=== PATIENT | male | born 1940 | race African-American/Black ===

== ENCOUNTER 2017-03-10 20:07 | Emergency (ER) | payer MEDICARE ==
[~2017-03-10] VITALS: Ht 172.7 cm; Wt 90.3 kg
[~2017-03-10 20:07] MED LIST: AMLO10TA2 PO; ASPI325T4 PO; ATOR40TA59 PO; GABA-586 PO; GLIM2TAB2 PO; HYDR-2868; HYDR25TA9 PO; INSU100V13 SQ; IRON45TA3 PO; LISI40TA PO; MULT-659 PO
--- NOTE | 2017-03-10 20:15 | PHYS DOC ---
General Chief Complaint: WEAKNESS/GENERALIZED Stated Complaint: LETHARGIC,WEAKNESS Time Seen by MD: 20:12 Source: patient, family Problems: History of Present Illness Initial Comments Patient here for generalized weakness. Patient says it started somewhat yesterday, but is significantly worse today and increasing over the course today. He says that he was able to get around the house with a cane, which he does chronically, but this evening really has not been able to be up and about at all. He says his legs feel heavy but really has no other focal complaints of weakness. He's had no headache with this. There's no vision or speech changes. There is no fever chills URI symptoms or cough. There is no runny nose or sore throat. There is no chest pain or shortness of breath. He has no nausea vomiting or abdominal pain. There is no change in bowel or bladder habits and no incontinence. As noted, he says he feels generally weak and his legs are heavy, but denies any other focal acute extremity or neurologic complaints. Patient says he's had these symptoms before for which she was admitted to the hospital last year, but doesn't remember what they said was wrong. Patient is done nothing for this home and notes no factors that increase or decrease any symptoms might have. He says he just has no energy to get up and around. Patient 's past medical history is remarkable for high blood pressure and chronic kidney disease. He does have medication list that also suggest he has a history of high cholesterol and diabetes. He is a nonsmoker and nonuser of ethanol. Allergies: Coded Allergies: No Known Drug Allergies (Unverified , 05/11/16) Past Medical History Medical History: diabetes, high cholesterol, hypertension, renal disease Surgical History: noncontributory Social History Smoker: non-smoker Alcohol: none Review of Systems All Other Systems: Reviewed and Negative Physical Exam General Appearance: WD/WN, no apparent distress Eyes: bilateral eye EOMI, bilateral eye PERRL, bilateral eye normal inspection Ear, Nose, Throat: normal ENT inspection, normal pharynx Neck: full range of motion, supple, normal inspection Respiratory: lungs clear, normal breath sounds, no respiratory distress Cardiovascular: regular rate, rhythm, no edema Gastrointestinal: non tender, soft, no organomegaly Back: no CVA tenderness Extremities: non-tender, normal inspection, no pedal edema Neurologic/Psychiatric: evp business development II-XII nml as tested, no motor/sensory deficits, alert, normal mood/affect, oriented x 3 Skin: normal color Lymphatic: no adenopathy Comments Generally this a well-developed well-nourished black male in no acute distress. Vitals are as noted. Pertinent findings on physical exam shows pupils to be equal and reactive. Extraocular movements are intact. Ears and throat clear. Head is atraumatic normocephalic. Neck supple without adenopathy or JVD. No meningeal signs. Chest is clear and cardiovascular exam shows regular rate and rhythm without murmur. The abdomen is soft and nontender without masses or organomegaly. There is no perineal findings. Back shows no CVA tenderness. Extremity show no rashes, cyanosis, or edema. Neurologic exam finds patient awake alert oriented 4. Cranial nerves II through XII grossly intact. DTRs 1+ or 4+ equal bilaterally. Strength 5 over 5 equal all sites tested. Patient does occasionally have some intermittent groin discomfort on moving the left lower extremity. He is able to get up and stand without difficulty and Romberg is negative. He swings the arms and legs without difficulty, and freely, with good range of motion and strength when changing positions in the exam room. Remainder of physical exam is clincially unremarkable. Orders, Labs, Meds Old charts note past ER visits for weakness and constipation. Patient was most recently admitted in the hospital in April of last year for bradycardia with nursing episode. Apparently was evaluated by photonics engineer and was found some of his medications were inhibiting his AV node. His medications were adjusted. Comorbidities that time including diabetes, iron deficiency anemia, and stage III chronic kidney disease. EKG shows sinus at 65. Normal axis. No acute ST or T-wave changes. There is an artifact at the tail ends of leads II and III which mimics focal elevation, but which is really an elevation of the baseline in those leads over adjoining leads. Labs today are essentially clinically unremarkable. Flu swabs are negative. CBC is stable. Urine is 45 with a creatinine of 2.6. Creatinine is actually improved from his past creatinine value of 2.9. This is consistent with the patient's known history of renal disease. CT scan of the head shows no acute changes per radiology. 2315 Patient resting comfortably ER. I did apologize for delays in care related to patient volume. Patient and his are very gracious in understanding. He says he is feeling better, and at this time he is able to get up, ambulate freely in the ER with really just minimal difficulty, able to go the bathroom by himself amulet back to the room without problem. I discussed with him the uncertain cause of his generalized weakness. Many ways, this does seem very similar to his previous ER admission for generalized weakness, after which she was sent home without cause being determined. During his hospital admission appeared that he was bradycardic, he certainly has no bradycardia at this time. Discussed with the patient the uncertain cause of symptoms. We discussed that while all the labs and CT scan looked good at this time, if he felt generally weak and unsteady and felt like he would not do well at home, we could certainly consider admitting him to the hospital. Alternately, she felt that he was going to do okay at home, given we had no focal neurologic findings and a negative workup we can probably discharge home to follow-up with his own physician, Dr. Brown, tomorrow. After discussion, the patient does state he feels well enough [place] to try this at home. We discussed again the uncertain etiology the symptoms. I really don't think this is an acute neurologic event like a CVA or TIA. There is really no focal symptoms to suggest this. He actually is already on an aspirin a day for heart health, this is good TIA prophylaxis. As noted, he feels like he'll do well at home, declines the offer of admission. I think this is a reasonable decision on his part given his prior negative workups and the fact that he is up and about and on his feet really with minimal difficulty at this time. He does voice understanding of the need to follow up with primary care tomorrow or return to the ER sooner as needed if worsening anyway. He looks well, in no acute distress discomfort distress, neurologically stable, and okay for discharge home with his . WOODROW ARITA MD Mar 10, 2017 20:15
[2017-03-10] MEDS ORDERED: IV NORMAL SALINE 1,000ML 1,000 ML IV ONE (20:45)
[2017-03-10 21:02] LABS: BASO # 0.1 x10^3/uL (0.0-0.2); BASO % 1 % (0-3); EOS # 0.2 x10^3/uL (0.0-0.7); EOS % 3 % (0-3); HEMATOCRIT 34.4 % (39.0-53.0); HEMOGLOBIN 10.9 g/dL (13.0-17.5); LYMPH # 1.4 x10^3/uL (1.0-4.8); LYMPH % 24 % (24-48); MEAN CORPUSCULAR HEMOGLOBIN 24 pg (25-35); MEAN CORPUSCULAR HGB CONC 32 g/dL (31-37); MEAN CORPUSCULAR VOLUME 77 fL (79-100); MONO # 0.6 x10^3/uL (0.0-1.1); MONO % 10 % (0-9); NEUT # 3.6 x10^3uL (1.8-7.7); NEUT % 62 % (31-73); PLATELET COUNT 186 x10^3/uL (140-400); RED BLOOD COUNT 4.48 x10^6/uL (4.30-5.70); RED CELL DISTRIBUTION WIDTH 13.9 % (11.5-14.5); WHITE BLOOD COUNT 5.7 x10^3/uL (4.0-11.0)
--- NOTE | 2017-03-10 21:07 | RAD ---
PROCEDURE CT head without contrast. HISTORY Weakness, onset yesterday. TECHNIQUE Helical CT imaging of the brain is performed without IV contrast. PQRS: One or more the following individualized dose reduction techniques were utilized for the study: 1. Automated exposure control. 2. Adjustment of the mA and/or kV according to patient size. 3. Use of iterative reconstruction technique. COMPARISON CT head without contrast August 07, 2016. FINDINGS There is no midline shift or mass effect. No extra-axial fluid collection or intraparenchymal hemorrhage. Pastor-white matter differentiation is preserved. The ventricles and sulci are prominent, consistent with age-related cerebral atrophy. There is mild periventricular white matter hypoattenuation, nonspecific but commonly due to chronic small vessel ischemic disease in a patient of this age. The visualized paranasal sinuses and mastoid air cells are clear. The globes and orbits appear intact. No acute calvarial abnormality. IMPRESSION No acute intracranial abnormality. Electronically signed by: Tian Cool MD (Mar 10, 2017 21:05:55)
--- NOTE | 2017-03-10 21:08 | EKG ---
[address] [address] Test Date: 2017-03-10 Test Time: 20:52:38 Pat Name: SEAMUS ALTMAN Department: Room: Gender: M Sales Representative Publications: : 1940 Requested By: WOODROW ARITA Order Number: [id number] Reading MD: Measurements Intervals [place] Rate: 65 P: 49 TX: 172 QRS: 21 QRSD: 82 T: 34 QT: 414 QTc: 431 Interpretive Statements SINUS RHYTHM INTERPOLATED ATRIAL PREMATURE COMPLEX(ES) NO SPECIFIC ECG ABNORMALITIES RI6.01 Unconfirmed report Compared to ECG 08/07/2016 00:53:18 No significant changes
[2017-03-10 21:27] LABS: ALBUMIN 4.1 g/dL (3.4-5.0); ALBUMIN/GLOBULIN RATIO 1.1 (1.0-1.7); CALCIUM 9.3 mg/dL (8.5-10.1); CREATININE 2.6 mg/dL (0.7-1.3); GFR 29.3; POTASSIUM 4.2 mmol/L (3.5-5.1); TOTAL BILIRUBIN 0.4 mg/dL (0.2-1.0); TOTAL PROTEIN 7.9 g/dL (6.4-8.2)
[2017-03-10 21:40] LABS: INFLUENZA A PATIENT NEGATIVE (NEGATIVE); INFLUENZA B PATIENT NEGATIVE (NEGATIVE)
[2017-03-10 22:06] LABS: CLARITY,URINE CLEAR; COLOR,URINE YELLOW; GLUCOSE,URINE NEG (NEG)
[2017-03-10 22:07] LABS: BILIRUBIN,URINE NEG (NEG); NITRITE,URINE NEG (NEG); UROBILINOGEN,URINE 0.2 mg/dL (0.2 mg/dL)
[2017-03-10 22:08] LABS: BACTERIA,URINE 0 /HPF (0-FEW); RBC,URINE 0 /HPF (0-2); SQUAMOUS EPITHELIAL CELL,UR FEW /LPF; WBC,URINE OCC /HPF (0-4)
[2017-03-10 23:00] VITALS: BP 149/71
== END 2017-03-10 23:50 | disposition home or self-care (01) ==
LOC: ER 20:07
DX: R53.1 Weakness (principal); E11.9 Type 2 diabetes mellitus without complications; E78.00 Pure hypercholesterolemia, unspecified; I12.9 Hypertensive chronic kidney disease with stage 1 through stage 4 chronic kidney disease, or unspecified chronic kidney disease; N18.9 Chronic kidney disease, unspecified
CPT/HCPCS: 36415; 70450; 80053; 81001; 82010; 82150; 82553; 82947; 83605; 83690; 84443; 85027; 87804; 93005; 96360; 99285-25; J7030

== ENCOUNTER → 2017-06-08 | Outpatient (CLI) | payer MEDICARE ==
[~2017-06-08] MED LIST changes: -ASPI325T4 PO; +ASPI325T8 PO
[2017-06-08 09:30] LABS: BASO % 1 % (0-3); EOS # 0.2 x10^3/uL (0.0-0.7); EOS % 3 % (0-3); HEMATOCRIT 32.7 % (39.0-53.0); HEMOGLOBIN 10.6 g/dL (13.0-17.5); LYMPH # 1.7 x10^3/uL (1.0-4.8); LYMPH % 31 % (24-48); MEAN CORPUSCULAR HEMOGLOBIN 25 pg (25-35); MEAN CORPUSCULAR HGB CONC 33 g/dL (31-37); MEAN CORPUSCULAR VOLUME 76 fL (79-100); MONO # 0.6 x10^3/uL (0.0-1.1); MONO % 11 % (0-9); NEUT # 2.9 x10^3uL (1.8-7.7); NEUT % 54 % (31-73); PLATELET COUNT 185 x10^3/uL (140-400); RED BLOOD COUNT 4.29 x10^6/uL (4.30-5.70); WHITE BLOOD COUNT 5.3 x10^3/uL (4.0-11.0)
[2017-06-08 09:48] LABS: ALBUMIN 3.8 g/dL (3.4-5.0); CALCIUM 8.8 mg/dL (8.5-10.1); CREATININE 2.6 mg/dL (0.7-1.3); GFR 29.3; PHOSPHORUS 3.3 mg/dL (2.6-4.7); POTASSIUM 4.4 mmol/L (3.5-5.1)
[2017-06-08 23:10] LABS: MICROALB RD UR 263.4 ug/mL (Not Estab.); TOTAL PROTEIN CREATININE RATIO 638 mg/g creat (0-200); UR PROTEIN RD 37.5 mg/dL (Not Estab.)
[2017-06-09 00:07] LABS: CALCIUM PTH 9.2 mg/dL (8.6-10.2); CREATININE PTH 2.46 mg/dL (0.76-1.27); PTH INTACT 112 pg/mL (15-65)
== END | disposition home or self-care (01) ==
LOC: LAB 08:57
PROVIDERS: ATTEND Internal Medicine Nephrology
DX: I12.9 Hypertensive chronic kidney disease with stage 1 through stage 4 chronic kidney disease, or unspecified chronic kidney disease (principal); N18.4 Chronic kidney disease, stage 4 (severe); E11.21 Type 2 diabetes mellitus with diabetic nephropathy; R80.9 Proteinuria, unspecified; Z68.29 Body mass index [BMI] 29.0-29.9, adult
CPT/HCPCS: 36415; 80069; 82043; 82570; 83735; 83970; 84156; 85027

== ENCOUNTER → 2017-07-02 | Outpatient (CLI) | payer MEDICARE ==
--- NOTE | 2017-07-02 13:34 | RAD ---
Ventilation/perfusion lung scan, 07/02/2017: History: Acute bronchitis, chest heaviness, dyspnea The ventilation study was performed utilizing 16.6 mCi of xenon-133. There is symmetric activity in the lungs. There is good washout of activity from both lungs. Perfusion imaging was performed utilizing 5.5 mCi of technetium 99m MAA. A similar pattern of activity is present in the lungs. No unmatched or segmental perfusion defects are seen. IMPRESSION: No VQ findings to suggest pulmonary emboli.
== END | disposition home or self-care (01) ==
LOC: NM 11:16
PROVIDERS: ATTEND Family Medicine
DX: J20.1 Acute bronchitis due to Hemophilus influenzae (principal)
CPT/HCPCS: 78582; 96374; A9540; A9558

== ENCOUNTER → 2017-08-31 | Outpatient (CLI) | payer MEDICARE ==
[2017-08-31 16:58] LABS: ALBUMIN 3.9 g/dL (3.4-5.0); CALCIUM 8.9 mg/dL (8.5-10.1); CREATININE 2.8 mg/dL (0.7-1.3); GFR 26.9; PHOSPHORUS 3.6 mg/dL (2.6-4.7)
[2017-08-31 18:03] LABS: HEMOGLOBIN 10.3 g/dL (13.0-17.5)
[2017-09-01 11:05] LABS: MICRO CREAT RATIO 238.3 mg/g creat (0.0-30.0); MICROALB RD UR 185.4 ug/mL (Not Estab.); PROTEIN RANDOM URINE 28.2 mg/dL (Not Estab.)
[2017-09-01 20:09] LABS: CALCIUM PTH 9.4 mg/dL (8.6-10.2); CREATININE PTH 2.53 mg/dL (0.76-1.27); PTH INTACT 99 pg/mL (15-65)
[2017-09-01 23:13] LABS: HEMOGLOBIN A1C 6.2 % (4.8-5.6)
== END | disposition home or self-care (01) ==
LOC: LAB 14:31
PROVIDERS: ATTEND Internal Medicine Nephrology
DX: I12.9 Hypertensive chronic kidney disease with stage 1 through stage 4 chronic kidney disease, or unspecified chronic kidney disease (principal); N18.4 Chronic kidney disease, stage 4 (severe); E11.21 Type 2 diabetes mellitus with diabetic nephropathy; I70.1 Atherosclerosis of renal artery; R80.1 Persistent proteinuria, unspecified; D64.9 Anemia, unspecified; Z68.29 Body mass index [BMI] 29.0-29.9, adult
CPT/HCPCS: 36415; 80069; 82043; 82306; 82570; 82607; 82728; 83036; 83540; 83550; 83735; 83970; 84156; 85014; 85018

== ENCOUNTER 2017-09-23 22:24 | Inpatient (IN) | payer MEDICARE ==
[~2017-09-23] VITALS: Ht 172.7 cm; Wt 85.4 kg
[~2017-09-23 22:24] MED LIST changes: -HYDR-2868; +HYDR-2868 PO
[2017-09-23] MEDS ORDERED: LABETALOL 20 MG/4 ML DISP.SYRIN. IV PRN (22:45)
[2017-09-23] MEDS ORDERED: 0.9 % SODIUM CHLORIDE 10 ML DISP.SYRIN. IV PRN (22:45)
--- NOTE | 2017-09-23 22:56 | EKG ---
[address] [address] Test Date: 2017-09-23 Test Time: 22:44:54 Pat Name: SEAMUS ALTMAN Department: Room: Gender: M Bureau Director: : 1940 Requested By: IRIS LOGAN Order Number: [id number] Reading MD: Cedric Holcomb Measurements Intervals [place] Rate: 57 P: 41 DE: 168 QRS: 16 QRSD: 92 T: 49 QT: 434 QTc: 425 Interpretive Statements SINUS RHYTHM ATRIAL PREMATURE COMPLEX(ES) Electronically Signed On 09-29-2017 8:18:31 CDT by Cedric Holcomb
[2017-09-23] MEDS ORDERED: IV NORMAL SALINE 1,000ML 1,000 ML IV SCH (23:00)
[2017-09-23] MEDS ORDERED: ASPIRIN 81 MG TAB.CHEW PO ONE (23:00)
--- NOTE | 2017-09-23 23:01 | PHYS DOC ---
Past History Past Medical History: Constipation, Diabetes, Hypertension, Renal Disease, Other Past Surgical History: Tonsillectomy, Other Smoking: Non-smoker Alcohol Use: None Drug Use: None Adult General Chief Complaint Chief Complaint: HYPERTENSION HPI HPI Patient is a pleasant 76-year-old -[place] male with history of hypertension, hyponatremia, diabetes, peripheral neuropathy who presents with sudden onset of dizziness while sitting in a chair. Patient was watching a football game tonight we had an sudden onset of dizziness with intense nausea without headache but had fullness in his ears. He denies any headache, chest pain, abdominal pain, diarrhea, fevers, chills, URI symptoms, hearing loss or tinnitus. Patient says he's had something like this in the past but this is more intense. Patient admits that he may have some problems with his medications as he believes his gabapentin and hydralazine may be concerning to his symptoms. He denies any trauma, travel outside the country or recent antibiotics. This is not changed with position or head movement. Patient almost passed out. My syncope differential includes but not limited to: Neurally mediated vasovagal syncope, situational syncope, cardiac sinus syncope , orthostatic hypertension, medications, psychiatric interventions, neurologic syncope, cardiogenic syncopal B, to include organic heart disease congestive heart failure, cardiac dysrhythmia, seizure disorder, stroke or transient ischemic attack, bradycardia dysrhythmias, tachycardia dysrhythmias, PT, V. fib V. fib, cardiac abnormalities like first degree secondary third-degree AV blocks , prolonged QT, hypertrophic Elijah myopathy, severe pulmonic stenosis, pulmonary arterial hypertension, atrial myxomas, aortic stenosis, valvular failure, alcohol consumption, adrenal insufficiency, drug effects from things like antidepressants, antihypertensive agents like beta blockers, vasodilators including calcium channel blockers and nitrates, autonomic insufficiency. Review of Systems Review of Systems Constitutional: Denies fever or chills [] Eyes: Denies change in visual acuity, redness, or eye pain [] HENT: Denies nasal congestion or sore throat [] Respiratory: Denies cough or shortness of breath [] Cardiovascular: No additional information not addressed in HPI [] GI: Denies abdominal pain, vomiting, bloody stools or diarrhea he has complained of nausea[] : Denies dysuria or hematuria [] Musculoskeletal: Denies back pain or joint pain [] Integument: Denies rash or skin lesions [] Neurologic: Denies headache, focal weakness or sensory changes [] Endocrine: Denies polyuria or polydipsia [] Current Medications Current Medications Current Medications Medications (Trade) Dose Ordered Sig/Elda Start Time Stop Time Status Last Admin Dose Admin Aspirin (Children'S Aspirin) 324 mg 1X ONCE 09/23/17 22:45 09/23/17 22:46 UNV Labetalol HCl (Normodyne) 10 mg PRN Q10MIN PRN 09/23/17 22:45 UNV Sodium Chloride (Normal Saline Flush) 10 ml QSHIFT PRN 09/23/17 22:45 UNV Allergies Allergies Allergies Coded Allergies Type Severity Reaction Last Updated Verified No Known Drug Allergies 05/11/16 No Physical Exam Physical Exam Vital signs recorded on the chart patient noted to be very hypertensive. Constitutional: Well developed, well nourished, no acute distress, non-toxic appearance. [] HENT: Normocephalic, atraumatic, bilateral external ears normal, oropharynx moist, no oral exudates, nose normal. [] Eyes: PERRLA, EOMI, conjunctiva normal, no discharge patient does have a right going nystagmus. [] Neck: Normal range of motion, no tenderness, supple, no stridor. [] Cardiovascular:Heart rate regular rhythm, no murmur [] Lungs & Thorax: Bilateral breath sounds clear to auscultation [] Abdomen: Bowel sounds normal, soft, no tenderness, no masses, no pulsatile masses. [] Skin: Warm, dry, no erythema, no rash. [] Back: No tenderness, no CVA tenderness. [] Extremities: No tenderness, no cyanosis, no clubbing, ROM intact, no edema. [] Neurologic: Alert and oriented X 3, normal motor function, normal sensory function, no focal deficits noted. [] Psychologic: Affect normal, judgement normal, mood normal. [] Based on his presentation and the stroke score below patient has a 0 at this time 1a. Level of consciousness: 0 = Alert; keenly responsive. 1 = Not alert; but arousable by minor stimulation to obey, answer, or respond. 2 = Not alert; requires repeated stimulation to attend, or is obtunded and requires strong or painful stimulation to make movements (not stereotyped). 3 = Responds only with reflex motor or autonomic effects or totally unresponsive , flaccid, and areflexic. 1b. LOC questions: 0 = Answers both questions correctly. 1 = Answers one question correctly. 2 = Answers neither question correctly. 1c. LOC commands: 0 = Performs both tasks correctly. 1 = Performs one task correctly. 2 = Performs neither task correctly. 2. Best gaze: 0 = Normal. 1 = Partial gaze palsy; gaze is abnormal in one or both eyes, but forced deviation or total gaze paresis is not present. 2 = Forced deviation, or total gaze paresis not overcome by the oculocephalic maneuver. 3. Visual: 0 = No visual loss. 1 = Partial hemianopia. 2 = Complete hemianopia. 3 = Bilateral hemianopia (blind including cortical blindness). 4. Facial palsy: 0 = Normal symmetrical movements. 1 = Minor paralysis (flattened nasolabial fold, asymmetry on smiling). 2 = Partial paralysis (total or near-total paralysis of lower face). 3 = Complete paralysis of one or both sides (absence of facial movement in the upper and lower face). 5. Motor arm: 0 = No drift; limb holds 90 (or 45) degrees for full 10 seconds. 1 = Drift; limb holds 90 (or 45) degrees, but drifts down before full 10 seconds ; does not hit bed or other support. 2 = Some effort against gravity; limb cannot get to or maintain (if cued) 90 ( or 45) degrees, drifts down to bed, but has some effort against gravity. 3 = No effort against gravity; limb falls. 4 = No movement. UN = Amputation or joint fusion, explain: 5a. Left arm 5b. Right arm 6. Motor le = No drift; leg holds 30-degree position for full 5 seconds. 1 = Drift; leg falls by the end of the 5-second period but does not hit bed. 2 = Some effort against gravity; leg falls to bed by 5 seconds, but has some effort against gravity. 3 = No effort against gravity; leg falls to bed immediately. 4 = No movement. UN = Amputation or joint fusion, explain: 6a. Left leg 6b. Right leg 7. Limb ataxia: 0 = Absent. 1 = Present in one limb. 2 = Present in two limbs. UN = Amputation or joint fusion 8. Sensory: 0 = Normal; no sensory loss. 1 = Njuy-dj-ujfcltvt sensory loss; patient feels pinprick is less sharp or is dull on the affected side; or there is a loss of superficial pain with pinprick , but patient is aware of being touched. 2 = Severe to total sensory loss; patient is not aware of being touched in the face, arm, and leg. 9. Best language: 0 = No aphasia; normal. 1 = Gtcr-ev-kfthmjiz aphasia; some obvious loss of fluency or facility of comprehension, without significant limitation on ideas expressed or form of expression. Reduction of speech and/or comprehension, however, makes conversation about provided materials difficult or impossible. For example, in conversation about provided materials, examiner can identify picture or naming card content from patient's response. 2 = Severe aphasia; all communication is through fragmentary expression; great need for inference, questioning, and guessing by the listener. Range of information that can be exchanged is limited; listener carries burden of communication. Examiner cannot identify materials provided from patient response. 3 = Mute, global aphasia; no usable speech or auditory comprehension. 10. Dysarthria: 0 = Normal. 1 = Rpwp-ac-purnmvog dysarthria; patient slurs at least some words and, at worst , can be understood with some difficulty. 2 = Severe dysarthria; patient's speech is so slurred as to be unintelligible in the absence of or out of proportion to any dysphasia, or is mute/anarthric. UN = Intubated or other physical barrier, explain: 11. Extinction and inattention (formerly neglect): 0 = No abnormality. 1 = Visual, tactile, auditory, spatial, or personal inattention or extinction to bilateral simultaneous stimulation in one of the sensory modalities. 2 = Profound favio-inattention or extinction to more than one modality; does not recognize own hand or orients to only one side of space. EKG EKG []EKG timed 10:44 PM 09/23/2017 demonstrates sinus rhythm with NC interval 168 which is normal QRS width of 92 which is normal, QTC of 425 which is normal patient has a number of premature atrial contractions without obvious ST segment or T-wave changes consistent with acute cardiac ischemia. This is an abnormal EKG but no STEMI. Radiology/Procedures Radiology/Procedures [] [place] [id number] IMAGING REPORT Signed PATIENT: SEAMUS ALTMAN ACCOUNT: [id number] : 1940 LOCATION: ER AGE: 76 SEX: M EXAM STATUS: REG ER ORD. PHYSICIAN: IRIS LOGAN MD REASON: dizziness PROCEDURE: CT HEAD WO CONTRAST CT scan of the head without contrast 09/23/2017 Clinical History: Dizziness with equilibrium problems. Technique: Unenhanced, contiguous, 5 mm axial sections were obtained through the head. One or more of the following individualized dose reduction techniques were utilized for this study: 1. Automated exposure control. 2. Adjustment of the mA and/or kV according to patient size. 3. Use of iterative reconstruction technique. Findings: Comparison study is dated 03/10/2017. There is generalized parenchymal atrophy. Areas of decreased attenuation are seen within the periventricular and subcortical white matter of both cerebral hemispheres consistent with areas of small vessel ischemic disease. No acute parenchymal abnormality is seen. No extra-axial fluid collection is noted. No skull fracture is seen. Impression: No acute intracranial abnormality is seen. Electronically signed by: Nicholas Parker MD (09/23/2017 11:25 PM) [facility] DICTATED AND SIGNED BY: NICHOLAS PARKER MD DATE: 09/23/17 [id number] CC: IRIS LOGAN MD; CHRISTINE EL MD ~ Course & Med Decision Making Course & Med Decision Making Pertinent Labs and Imaging studies reviewed. (See chart for details) Patient presents with dizziness and near-syncope at home while at rest.My syncope differential includes but not limited to: Neurally mediated vasovagal syncope, situational syncope, cardiac sinus syncope , orthostatic hypertension, medications, psychiatric interventions, neurologic syncope, cardiogenic syncopal B, to include organic heart disease congestive heart failure, cardiac dysrhythmia, seizure disorder, stroke or transient ischemic attack, bradycardia dysrhythmias, tachycardia dysrhythmias, PT, V. fib V. fib, cardiac abnormalities like first degree secondary third-degree AV blocks , prolonged QT, hypertrophic Elijah myopathy, severe pulmonic stenosis, pulmonary arterial hypertension, atrial myxomas, aortic stenosis, valvular failure, alcohol consumption, adrenal insufficiency, drug effects from things like antidepressants, antihypertensive agents like beta blockers, vasodilators including calcium channel blockers and nitrates, autonomic insufficiency. Was considered when he first arrived given his history of diabetes, hypertension hyperlipidemia I considered stroke as well his stroke scale was 0 on arrival. History: Highly suspicious 2 points moderately suspicious 1. slightly suspicious 0 point EKG: ST segment depression 2. nonspecific repolarization disturbance 1. normal 0 point Age: Greater than 65 2 points, 65-45 1., less than 45 years old 0 points Risk factors:> 3 risk factors 2 points, 1-2 risk factors one point, no risk factors 0 point Troponin: > 2 times normal 2 points, 1-2 times normal 1., normal limits 0 point Total score: Score % pts MACE/n MACE Policy 0-3 32% 1.9% 0.05% Discharge 4-6 51% 413/3136 13% 1.3% Observation Risk management 7-10 17% 518/1045 50% 2.8% Observation Treatment, CAG []A stat history patient is actually moderate risk for possible acute coronary event. Given his risk factors, and age patient's troponin and EKG are unremarkable but given the acuteness of his symptoms there is not enough time elapsed between the 2 events to truly rule out cardiac damage at this time. After speaking with the patient at approximately 11:15 PM patient is feeling markedly improved he agreed to admission secondary to this unprovoked nature of the dizziness. From my perspective is likely benign positional vertigo but given his history of diabetes poorly controlled hypertension and hyperlipidemia we do only a more thorough cardiac workup. I will have cardiology evaluate him in the morning. Production Clerk note: Dr. Brown Production Clerk called at of the service service paged at 11:15 PM Consult called back at 11:16 PM Discussed the case I presented and they agreed with admission. Time of acceptance 11:16 p.m. Naun Disclaimer Naun Disclaimer This chart was dictated in whole or in part using Voice Recognition software in a busy, high-work load, and often noisy Emergency Department environment. It may contain unintended and wholly unrecognized errors or omissions. Departure Departure: Impression: Primary Impression: Abnormal EKG Additional Impressions: Near syncope Hypertension Dizziness Disposition: ADMITTED INPATIENT Admitting Physician: Christine El Referrals: CHRISTINE EL MD (PCP) Problem Qualifiers IRIS LOGAN MD Sep 23, 2017 23:01
[2017-09-23 23:17] LABS: HEMOGLOBIN ISTAT 9.5 gm/dL; POTASSIUM ISTAT 4.4 mmol/L (3.5-5.0)
[2017-09-23 23:23] LABS: BASO # 0.1 x10^3/uL (0.0-0.2); BASO % 1 % (0-3); EOS # 0.2 x10^3/uL (0.0-0.7); EOS % 4 % (0-3); HEMATOCRIT 31.6 % (39.0-53.0); HEMOGLOBIN 10.5 g/dL (13.0-17.5); LYMPH # 2.3 x10^3/uL (1.0-4.8); LYMPH % 40 % (24-48); MEAN CORPUSCULAR HEMOGLOBIN 26 pg (25-35); MEAN CORPUSCULAR HGB CONC 33 g/dL (31-37); MEAN CORPUSCULAR VOLUME 77 fL (79-100); MONO # 0.7 x10^3/uL (0.0-1.1); MONO % 12 % (0-9); NEUT # 2.6 x10^3uL (1.8-7.7); NEUT % 44 % (31-73); PLATELET COUNT 187 x10^3/uL (140-400); RED BLOOD COUNT 4.14 x10^6/uL (4.30-5.70); RED CELL DISTRIBUTION WIDTH 13.5 % (11.5-14.5); WHITE BLOOD COUNT 5.9 x10^3/uL (4.0-11.0)
[2017-09-23] MEDS: IV NORMAL SALINE 1,000ML 1,000 ML IV SCH (23:27)
--- NOTE | 2017-09-23 23:28 | RAD ---
CT scan of the head without contrast 09/23/2017 Clinical History: Dizziness with equilibrium problems. Technique: Unenhanced, contiguous, 5 mm axial sections were obtained through the head. One or more of the following individualized dose reduction techniques were utilized for this study: 1. Automated exposure control. 2. Adjustment of the mA and/or kV according to patient size. 3. Use of iterative reconstruction technique. Findings: Comparison study is dated 03/10/2017. There is generalized parenchymal atrophy. Areas of decreased attenuation are seen within the periventricular and subcortical white matter of both cerebral hemispheres consistent with areas of small vessel ischemic disease. No acute parenchymal abnormality is seen. No extra-axial fluid collection is noted. No skull fracture is seen. Impression: No acute intracranial abnormality is seen. Electronically signed by: Nicholas Parker MD (09/23/2017 11:25 PM) [facility]
[2017-09-23] MEDS ORDERED: ONDANSETRON PF 4 MG/2 ML VIAL. IV PRN (23:30)
[2017-09-23] MEDS ORDERED: ACETAMINOPHEN 325 MG TABLET PO PRN (23:30)
[2017-09-23 23:43] LABS: BACTERIA,URINE 0 /HPF (0-FEW); BILIRUBIN,URINE NEG (NEG); CLARITY,URINE CLEAR; COLOR,URINE YELLOW; GLUCOSE,URINE NEG (NEG); NITRITE,URINE NEG (NEG); RBC,URINE 0 /HPF (0-2); SQUAMOUS EPITHELIAL CELL,UR OCC /LPF; UROBILINOGEN,URINE 0.2 mg/dL (0.2 mg/dL); WBC,URINE 0 /HPF (0-4)
[2017-09-24 00:03] LABS: ALBUMIN 3.9 g/dL (3.4-5.0); DIRECT BILIRUBIN 0.1 mg/dL (0.0-0.2); MAGNESIUM 1.7 mg/dL (1.8-2.4); TOTAL BILIRUBIN 0.3 mg/dL (0.2-1.0); TOTAL PROTEIN 7.5 g/dL (6.4-8.2)
[2017-09-24 00:30] VITALS: BP 164/72
[2017-09-24] MEDS ORDERED: HYDR12.58 PO (01:20)
[2017-09-24] MEDS ORDERED: GABA-585 PO (01:21)
[2017-09-24] MEDS ORDERED: VITA150T PO (01:25)
[2017-09-24] MEDS ORDERED: CHOL500016 PO (01:39)
[2017-09-24] MEDS ORDERED: MAGN250T10 PO (01:39)
[2017-09-24 04:31] LABS: BASO # 0.1 x10^3/uL (0.0-0.2); BASO % 1 % (0-3); EOS # 0.2 x10^3/uL (0.0-0.7); EOS % 3 % (0-3); HEMATOCRIT 29.1 % (39.0-53.0); HEMOGLOBIN 9.6 g/dL (13.0-17.5); LYMPH # 1.7 x10^3/uL (1.0-4.8); LYMPH % 32 % (24-48); MEAN CORPUSCULAR HEMOGLOBIN 26 pg (25-35); MEAN CORPUSCULAR HGB CONC 33 g/dL (31-37); MEAN CORPUSCULAR VOLUME 77 fL (79-100); MONO # 0.5 x10^3/uL (0.0-1.1); MONO % 10 % (0-9); NEUT # 2.8 x10^3uL (1.8-7.7); NEUT % 54 % (31-73); PLATELET COUNT 165 x10^3/uL (140-400); RED BLOOD COUNT 3.76 x10^6/uL (4.30-5.70); RED CELL DISTRIBUTION WIDTH 13.8 % (11.5-14.5); WHITE BLOOD COUNT 5.2 x10^3/uL (4.0-11.0)
[2017-09-24 04:44] LABS: ALBUMIN 3.5 g/dL (3.4-5.0); CALCIUM 8.7 mg/dL (8.5-10.1); CREATININE 2.6 mg/dL (0.7-1.3); GFR 29.3; POTASSIUM 4.2 mmol/L (3.5-5.1); TOTAL BILIRUBIN 0.3 mg/dL (0.2-1.0); TOTAL PROTEIN 6.9 g/dL (6.4-8.2)
[2017-09-24 05:20] VITALS: BP 147/54
--- NOTE | 2017-09-24 07:31 | RAD ---
AP chest, 09/23/2017: History: Dizziness Comparison is made to a study from 06/29/2017. The heart size and pulmonary vascularity are normal. No pulmonary infiltrates are seen. There is no evidence of pleural fluid. Old posttraumatic changes are again noted at the left acromioclavicular and coracoclavicular articulations. IMPRESSION: No acute cardiopulmonary abnormality is detected.
[2017-09-24] MEDS: IV NORMAL SALINE 1,000ML 1,000 ML IV SCH (09:27)
[2017-09-24 10:45] VITALS: BP 136/69
[2017-09-24 11:00] VITALS: BP 136/69
[2017-09-24] MEDS ORDERED: hydroCHLOROthiazide 12.5 MG CAPSULE PO SCH (11:00)
[2017-09-24] MEDS ORDERED: amLODIPine BESYLATE 10 MG TABLET PO SCH (11:00)
[2017-09-24] MEDS ORDERED: GABAPENTIN 100 MG CAPSULE. PO SCH (11:00)
[2017-09-24] MEDS ORDERED: VITAMIN B COMPLEX CAPSULE. PO SCH (11:00)
[2017-09-24] MEDS ORDERED: CHOLECALCIFEROL (VITAMIN D3) 1,000 UNIT TABLET PO SCH (11:00)
[2017-09-24] MEDS ORDERED: ASPIRIN 325 MG TABLET PO SCH (11:00)
[2017-09-24] MEDS ORDERED: LISINOPRIL 20 MG TABLET PO SCH (11:00)
[2017-09-24] MEDS ORDERED: MAGNESIUM OXIDE 400 MG TABLET PO SCH (11:00)
[2017-09-24] MEDS ORDERED: GLIMEPIRIDE 2 MG TABLET PO SCH (11:00)
[2017-09-24] MEDS ORDERED: hydrALAZINE 25 MG TABLET PO SCH (11:00)
[2017-09-24] MEDS ORDERED: FERROUS SULFATE 325 MG TABLET. PO SCH (11:00)
--- NOTE | 2017-09-24 13:01 | PDOC2 ---
CONSULT Date of Admission DATE: 09/24/17 TIME: 12:56 Reason for Consult: dizziness Referring Physician: Dr. Moya Chief Complaint dizziness, vertigo Source: Patient Problem List Problems Medical Problems: (1) Abnormal EKG Status: Acute (2) Dizziness Status: Acute (3) Hypertension Status: Acute (4) Near syncope Status: Acute History of Present Illness The patient is a 76-year-old male who reports episodes of acute onset of dizziness and some vertigo while watching a football game last evening at his home. He states he has had previous episodes that were similar but this episode was much more severe. He denies any associated chest pain or shortness of breath. He denies any syncope. He reports previous workups including echocardiograms and outpatient monitoring came up with no clear diagnosis. Overnight he has been stable. Troponins are normal 2. Telemetry showed a sinus rhythm. CT head scan showed no acute abnormalities. Chest x-ray showed no acute abnormalities. He is now resting comfortably in bed. Cardiovascular: HTN, Other (dizziness) Renal/: Chronic renal insuff Endocrine: Diabetes Past Surgical History: Tonsillectomy Family History: Hypertension Smoke: No ALCOHOL: none Current Medications Current Medications Aspirin (Children'S Aspirin) 324 mg 1X ONCE PO Last administered on 23:11; Start 09/23/17 at 23:00; Stop 09/23/17 at 23:01; Status DC Sodium Chloride 1,000 ml @ 1,000 mls/hr Q1H IV Last administered on 23:10; Start 09/23/17 at 23:00; Stop 09/24/17 at 00:00; Status DC Sodium Chloride (Normal Saline Flush) 10 ml QSHIFT PRN IV AFTER MEDS AND BLOOD DRAWS; Start 09/23/17 at 22:45 Labetalol HCl (Normodyne) 10 mg PRN Q10MIN PRN IV HYPERTENSION, SEE COMMENTS; Start 09/23/17 at 22:45 Ondansetron HCl (Zofran) 4 mg PRN Q4HRS PRN IV NAUSEA/VOMITING; Start at 23:30; Stop 09/24/17 at 23:29 Sodium Chloride 1,000 ml @ 100 mls/hr Q10H IV Last administered on 09/24/17 09:27; Start 09/23/17 at 23:27; Stop 09/24/17 at 23:26 Acetaminophen (Tylenol) 650 mg PRN Q4HRS PRN PO FEVER; Start 09/23/17 at 23:30 ; Stop 09/24/17 at 23:29 Amlodipine Besylate (Norvasc) 10 mg DAILY PO ; Start 09/24/17 at 11:00 Aspirin (Mili Aspirin) 325 mg DAILY PO Last administered on 09/24/17 10:57; Start 09/24/17 at 11:00 Gabapentin (Neurontin) 100 mg BID PO Last administered on 09/24/17 10:57; Start 09/24/17 at 11:00 Glimepiride (Amaryl) 2 mg DAILY PO Last administered on 09/24/17 10:57; Start 09/24/17 at 11:00 Hydralazine HCl (Apresoline) 25 mg DAILY PO ; Start 09/24/17 at 11:00 Atorvastatin Calcium (Lipitor) 40 mg QHS PO ; Start 09/24/17 at 21:00 Vitamin D (Vitamin D3) 5,000 unit DAILY PO Last administered on 09/24/17 10: 57; Start 09/24/17 at 11:00 Hydrochlorothiazide (Microzide) 12.5 mg DAILY PO ; Start 09/24/17 at 11:00 Ferrous Sulfate (Feosol) 325 mg DAILYWBKFT PO Last administered on 09/24/17 10:57; Start 09/24/17 at 11:00 Lisinopril (Prinivil) 40 mg DAILY PO Last administered on 09/24/17 10:57; Start 09/24/17 at 11:00 Magnesium Oxide (Magnesium Oxide) 400 mg DAILY PO Last administered on 10:58; Start 09/24/17 at 11:00 Vitamin B Complex 1 cap DAILY PO Last administered on 09/24/17 10:57; Start 09/24/17 at 11:00 Active Scripts Active Reported Magnesium (Magnesium Oxide) 250 Mg Tablet 250 Mg PO DAILY Vitamin D3 (Cholecalciferol (Vitamin D3)) 5,000 Unit Tablet 5,000 Unit PO DAILY Super B Complex (Vitamin B Complex & Vit C No.4) 150 Mg Tablet 150 Mg PO DAILY Gabapentin 100 Mg Capsule 100 Mg PO BID Hydrochlorothiazide Tablet (Hydrochlorothiazide) 12.5 Mg Tablet 12.5 Mg PO DAILY Hydralazine Hcl 25 Mg Tablet 25 Mg PO DAILY14 last dose next dose Feosol (Iron,Carbonyl) 45 Mg Tablet 65 Mg PO DAILY last dose this morning next dose tomorrow Aspirin 325 Mg Tablet 1 Tab PO DAILY last dose next dose Atorvastatin Calcium 40 Mg Tablet 1 Tab PO QHS last dose last night next dose tonight Lisinopril 40 Mg Tablet 40 Mg PO DAILY last dose this morning next dose tomorrow Glimepiride 2 Mg Tablet 2 Mg PO DAILY last dose next dose Amlodipine Besylate 10 Mg Tablet 10 Mg PO DAILY last dose this morning next dose tomorrow Allergies: Coded Allergies: No Known Drug Allergies (Unverified , 05/11/16) Neurological: YES: Dizziness General: No acute distress HEENT: Atraumatic Lungs: Clear to auscultation Heart: Regular rate Abdomen: Normal bowel sounds VITALS Vital Signs Date Time Temp Pulse Resp B/P (MAP) Pulse Ox O2 Delivery O2 Flow Rate FiO2 09/24/17 11:00 53 136/69 09/24/17 10:45 98.4 16 100 Room Air Labs Laboratory Tests Test 09/23/17 22:44 09/23/17 22:54 09/23/17 23:02 09/23/17 23:10 White Blood Count 5.9 x10^3/uL (4.0-11.0) Red Blood Count 4.14 x10^6/uL (4.30-5.70) Hemoglobin 10.5 g/dL (13.0-17.5) Hematocrit 31.6 % (39.0-53.0) Mean Corpuscular Volume 77 fL (79-100) Mean Corpuscular Hemoglobin 26 pg (25-35) Mean Corpuscular Hemoglobin Concent 33 g/dL (31-37) Red Cell Distribution Width 13.5 % (11.5-14.5) Platelet Count 187 x10^3/uL (140-400) Neutrophils (%) (Auto) 44 % (31-73) Lymphocytes (%) (Auto) 40 % (24-48) Monocytes (%) (Auto) 12 % (0-9) Eosinophils (%) (Auto) 4 % (0-3) Basophils (%) (Auto) 1 % (0-3) Neutrophils # (Auto) 2.6 x10^3uL (1.8-7.7) Lymphocytes # (Auto) 2.3 x10^3/uL (1.0-4.8) Monocytes # (Auto) 0.7 x10^3/uL (0.0-1.1) Eosinophils # (Auto) 0.2 x10^3/uL (0.0-0.7) Basophils # (Auto) 0.1 x10^3/uL (0.0-0.2) Magnesium Level 1.7 mg/dL (1.8-2.4) Total Bilirubin 0.3 mg/dL (0.2-1.0) Direct Bilirubin 0.1 mg/dL (0.0-0.2) Aspartate Amino Transf (AST/SGOT) 24 U/L (15-37) Alanine Aminotransferase (ALT/SGPT) 26 U/L (16-63) Alkaline Phosphatase 87 U/L (46-116) Creatine Kinase 179 U/L (39-308) Creatine Kinase MB (Mass) 0.7 ng/mL (0.0-3.6) Creatine Kinase MB Relative Index 0.4 % (0-4) Troponin I Quantitative < 0.017 ng/mL (0-0.055) BV-Oqm-V-Type Natriuretic Peptide 126 pg/mL (0-124) Total Protein 7.5 g/dL (6.4-8.2) Albumin 3.9 g/dL (3.4-5.0) Bedside Troponin I 0.01 ng/ml (<0.08) Urine Collection Type Unknown Urine Color Yellow Urine Clarity Clear Urine pH 6.5 Urine Specific [place] 1.010 Urine Protein 100 mg/dl (NEG-TRACE) Urine Glucose (UA) Neg mg/dL (NEG) Urine Ketones (Stick) Neg mg/dL (NEG) Urine Blood Neg (NEG) Urine Nitrite Neg (NEG) Urine Bilirubin Neg (NEG) Urine Urobilinogen Dipstick 0.2 mg/dL (0.2 mg/dL) Urine Leukocyte Esterase Neg (NEG) Urine RBC 0 /HPF (0-2) Urine WBC 0 /HPF (0-4) Urine Squamous Epithelial Cells Occ /LPF Urine Bacteria 0 /HPF (0-FEW) Bedside Hemoglobin 9.5 gm/dL Bedside Hematocrit 28 % Bedside Sodium 136 mmol/L (135-145) Bedside Potassium 4.4 mmol/L (3.5-5.0) Bedside Chloride 100 mmol/L (98-110) Bedside Total CO2 27 mmol/L (23-32) Anion Gap 15 mmol/L (6-14) Bedside Blood Urea Nitrogen 48 mg/dL (8-26) Bedside Creatinine 2.9 mg/dL (0.5-1.4) Glucose Level 91 mg/dL (60-99) Bedside Ionized Calcium (Jasbir) 1.14 mmol/L (1.13-1.32) Test 09/24/17 04:23 09/24/17 08:02 09/24/17 10:19 09/24/17 11:45 White Blood Count 5.2 x10^3/uL (4.0-11.0) Red Blood Count 3.76 x10^6/uL (4.30-5.70) Hemoglobin 9.6 g/dL (13.0-17.5) Hematocrit 29.1 % (39.0-53.0) Mean Corpuscular Volume 77 fL (79-100) Mean Corpuscular Hemoglobin 26 pg (25-35) Mean Corpuscular Hemoglobin Concent 33 g/dL (31-37) Red Cell Distribution Width 13.8 % (11.5-14.5) Platelet Count 165 x10^3/uL (140-400) Neutrophils (%) (Auto) 54 % (31-73) Lymphocytes (%) (Auto) 32 % (24-48) Monocytes (%) (Auto) 10 % (0-9) Eosinophils (%) (Auto) 3 % (0-3) Basophils (%) (Auto) 1 % (0-3) Neutrophils # (Auto) 2.8 x10^3uL (1.8-7.7) Lymphocytes # (Auto) 1.7 x10^3/uL (1.0-4.8) Monocytes # (Auto) 0.5 x10^3/uL (0.0-1.1) Eosinophils # (Auto) 0.2 x10^3/uL (0.0-0.7) Basophils # (Auto) 0.1 x10^3/uL (0.0-0.2) Sodium Level 139 mmol/L (136-145) Potassium Level 4.2 mmol/L (3.5-5.1) Chloride Level 104 mmol/L (98-107) Carbon Dioxide Level 26 mmol/L (21-32) Anion Gap 9 (6-14) Blood Urea Nitrogen 34 mg/dL (8-26) Creatinine 2.6 mg/dL (0.7-1.3) Estimated GFR (Cockcroft-Gault) 29.3 BUN/Creatinine Ratio 13 (6-20) Glucose Level 124 mg/dL (70-99) Calcium Level 8.7 mg/dL (8.5-10.1) Total Bilirubin 0.3 mg/dL (0.2-1.0) Aspartate Amino Transf (AST/SGOT) 21 U/L (15-37) Alanine Aminotransferase (ALT/SGPT) 26 U/L (16-63) Alkaline Phosphatase 72 U/L (46-116) Troponin I Quantitative < 0.017 ng/mL (0-0.055) < 0.017 ng/mL (0-0.055) Total Protein 6.9 g/dL (6.4-8.2) Albumin 3.5 g/dL (3.4-5.0) Albumin/Globulin Ratio 1.0 (1.0-1.7) Glucose (Fingerstick) 70 mg/dL (70-99) 107 mg/dL (70-99) Images CT scan of the head shows no acute changes. Chest x-ray shows no acute changes. Assessment/Plan 1. Dizziness with some episodes of vertigo. The patient is chest pain-free. EKG shows a sinus rhythm with nonspecific ST-T wave changes. Troponin has been normal 2. Patient remained in a sinus rhythm overnight. We did discuss possible echoes and outpatient monitoring. He stated that he has had these tests done with no clear diagnosis and at this time he appears to want to hold off on further cardiac testing. We'll continue present medications. We'll increase his activities. The patient may possibly go home later today from a cardiac viewpoint. We will check on him by phone next week if he is discharged later today or tomorrow. He reports he has not had a neurology workup as of yet. 2. Hypertension. Patient's blood pressure is under reasonable control. Continue present treatments. 3 Diabetes mellitus. Treatment as per the primary physician service. Thank you for allowing us to participate in the care of your pleasant patient. Problems: UZIEL LINDSAY MD Sep 24, 2017 13:01
[2017-09-24] MEDS ORDERED: ATORVASTATIN CALCIUM 20 MG TABLET PO SCH (21:00)
--- NOTE | 2017-10-06 20:10 | SSS ---
ADMIT DATE: 09/23/2017 CHIEF COMPLAINT: Dizziness and vertigo. The patient felt lightheaded. HISTORY OF PRESENT ILLNESS: A 76-year-old male with acute onset of dizziness and vertigo while watching football game, previous episodes, but this episode was more severe. Denied any chest pain or syncope per se. The patient's troponins were normal. The patient showed sinus rhythm. The patient, however, was admitted through the Emergency Room for further evaluation and treatment and observation for near syncope. PAST MEDICAL HISTORY: Diabetes, tonsillectomy. FAMILY HISTORY: Positive for hypertension. SOCIAL HISTORY: Denies alcohol or smoking. CURRENT MEDICATIONS: Aspirin, Normodyne 10 mg p.r.n., Norvasc 10 mg daily, gabapentin 100 mg b.i.d., Amaryl 2 mg p.o. b.i.d., hydralazine 25 mg p.o. daily, Lipitor 40, vitamin D, lisinopril 40. ALLERGIES: No known drug allergies. REVIEW OF SYSTEMS: Positive for dizziness, lightheadedness, near syncope. The patient otherwise denies chest pain, shortness breath. Denies abdominal pain presently. PHYSICAL EXAMINATION: GENERAL: This is a pleasant white male, in moderate amount of distress. VITAL SIGNS: Blood pressure 136/70, respiratory rate 16, pulse 53, afebrile. HEENT: The patient's head was atraumatic, normocephalic. Eyes: PERRLA without jaundice. Mouth and throat were normal. NECK: Supple, without JVD, carotid bruits or thyromegaly. LUNGS: Diminished throughout, but clear. CARDIOVASCULAR: Regular sinus rhythm, S1, S2, without murmur, rub, thrill, or extra heart sounds. ABDOMEN: Soft, nontender. EXTREMITIES: No clubbing, cyanosis or edema. NEUROLOGIC: The patient was alert and oriented x 3. LABORATORY DATA: The patient's CT scan of the head was unremarkable. The patient had an EKG showed nonspecific T-wave changes. Troponins were negative. The patient was seen by Dr. Sheehan, Cardiology, reviewed the case and cleared him from a cardiology point of view. . The patient was admitted. Cardiac enzymes were negative as noted. The patient did have an elevated blood pressure, was controlled with hydralazine. He made good progress. He was discharged home. See MRAD. Decreased activity. IMPRESSION: Near syncope, vestibulitis, history of hypertension, diabetes, and renal disease. PLAN: The patient will follow up accordingly as an outpatient and make further evaluation at that time and follow up with Dr. Sheehan. CHRISTINE EL MD DR: TUSHAR/bel JOB#: [id number] / [id number]
== END 2017-09-24 15:49 | disposition home or self-care (01) | DRG 149 ==
LOC: ER 22:24 → 1 SOUTH 23:25
PROVIDERS: ADMIT Family Medicine; ATTEND Family Medicine
DX: R42 Dizziness and giddiness (principal); E11.22 Type 2 diabetes mellitus with diabetic chronic kidney disease; E11.42 Type 2 diabetes mellitus with diabetic polyneuropathy; Z82.49 Family history of ischemic heart disease and other diseases of the circulatory system; Z90.49 Acquired absence of other specified parts of digestive tract; Z79.4 Long term (current) use of insulin; I12.9 Hypertensive chronic kidney disease with stage 1 through stage 4 chronic kidney disease, or unspecified chronic kidney disease; N18.9 Chronic kidney disease, unspecified
CPT/HCPCS: 36415; 70450; 71010; 80047; 80053; 80076; 81001; 82553; 82947; 83735; 83880; 84443; 84484; 85025; 93005; 96360; J3490; 99285-25; J7030

== ENCOUNTER → 2018-02-04 | Outpatient (CLI) | payer MEDICARE ==
[~2018-02-04] MED LIST changes: +CHOL500016 PO; +GABA-585 PO; +HYDR12.58 PO; +MAGN250T10 PO; +VITA150T PO
[2018-02-04 13:49] LABS: HEMATOCRIT 34.6 % (39.0-53.0); HEMOGLOBIN 11.1 g/dL (13.0-17.5)
[2018-02-04 13:52] LABS: CALCIUM 9.5 mg/dL (8.5-10.1); CREATININE 2.6 mg/dL (0.7-1.3); GFR 29.3; MAGNESIUM 2.2 mg/dL (1.8-2.4); PHOSPHORUS 3.8 mg/dL (2.6-4.7); POTASSIUM 4.5 mmol/L (3.5-5.1); URIC ACID 7.1 mg/dL (3.5-7.2)
[2018-02-05 03:20] LABS: MICRO CREAT RATIO 740.3 mg/g creat (0.0-30.0); MICROALB RD UR 580.4 ug/mL (Not Estab.)
[2018-02-05 16:18] LABS: CALCIUM PTH 9.5 mg/dL (8.6-10.2); CREATININE PTH 2.52 mg/dL (0.76-1.27); PTH INTACT 75 pg/mL (15-65)
== END | disposition home or self-care (01) ==
LOC: LAB 12:11
PROVIDERS: ATTEND Nurse Practitioner Family
DX: I12.9 Hypertensive chronic kidney disease with stage 1 through stage 4 chronic kidney disease, or unspecified chronic kidney disease (principal); E11.22 Type 2 diabetes mellitus with diabetic chronic kidney disease; N18.4 Chronic kidney disease, stage 4 (severe); N17.9 Acute kidney failure, unspecified; E11.42 Type 2 diabetes mellitus with diabetic polyneuropathy; E11.21 Type 2 diabetes mellitus with diabetic nephropathy; Z79.4 Long term (current) use of insulin
CPT/HCPCS: 36415; 80069; 82043; 82306; 82570; 83735; 83970; 84156; 84550; 85014; 85018

== ENCOUNTER → 2018-06-27 | Outpatient (CLI) | payer MEDICARE ==
[2018-06-27 15:32] LABS: HEMATOCRIT 33.4 % (39.0-53.0); HEMOGLOBIN 10.9 g/dL (13.0-17.5)
[2018-06-27 16:22] LABS: ALBUMIN 3.9 g/dL (3.4-5.0); CALCIUM 9.8 mg/dL (8.5-10.1); CREATININE 2.6 mg/dL (0.7-1.3); GFR 29.3; MAGNESIUM 2.1 mg/dL (1.8-2.4); PHOSPHORUS 3.6 mg/dL (2.6-4.7)
[2018-06-28 07:20] LABS: MICRO CREAT RATIO 286.7 mg/g creat (0.0-30.0); MICROALB RD UR 140.5 ug/mL (Not Estab.)
== END | disposition home or self-care (01) ==
LOC: LAB 14:04
PROVIDERS: ATTEND Internal Medicine Nephrology
DX: I13.11 Hypertensive heart and chronic kidney disease without heart failure, with stage 5 chronic kidney disease, or end stage renal disease (principal); E11.22 Type 2 diabetes mellitus with diabetic chronic kidney disease; N18.5 Chronic kidney disease, stage 5; I70.1 Atherosclerosis of renal artery; D64.9 Anemia, unspecified; N25.81 Secondary hyperparathyroidism of renal origin; E78.5 Hyperlipidemia, unspecified; E78.00 Pure hypercholesterolemia, unspecified; R80.1 Persistent proteinuria, unspecified; Z68.30 Body mass index [BMI] 30.0-30.9, adult
CPT/HCPCS: 36415; 80069; 82043; 82570; 82607; 82728; 83540; 83550; 83735; 84156; 85014; 85018

== ENCOUNTER → 2018-09-27 | Outpatient (CLI) | payer MEDICARE ==
[~2018-09-27] MED LIST changes: -AMLO10TA2 PO; +AMLO10TA6 PO
[2018-09-27 11:01] LABS: BASO % 1 % (0-3); EOS # 0.1 x10^3/uL (0.0-0.7); EOS % 3 % (0-3); HEMATOCRIT 34.6 % (39.0-53.0); HEMOGLOBIN 10.9 g/dL (13.0-17.5); LYMPH # 1.5 x10^3/uL (1.0-4.8); LYMPH % 32 % (24-48); MEAN CORPUSCULAR HEMOGLOBIN 24 pg (25-35); MEAN CORPUSCULAR HGB CONC 32 g/dL (31-37); MEAN CORPUSCULAR VOLUME 77 fL (79-100); MONO # 0.4 x10^3/uL (0.0-1.1); MONO % 9 % (0-9); NEUT # 2.6 x10^3uL (1.8-7.7); NEUT % 56 % (31-73); PLATELET COUNT 205 x10^3/uL (140-400); RED BLOOD COUNT 4.47 x10^6/uL (4.30-5.70); WHITE BLOOD COUNT 4.7 x10^3/uL (4.0-11.0)
[2018-09-27 11:18] LABS: ALBUMIN 3.8 g/dL (3.4-5.0); ALBUMIN/GLOBULIN RATIO 1.1 (1.0-1.7); CALCIUM 8.9 mg/dL (8.5-10.1); CREATININE 2.8 mg/dL (0.7-1.3); GFR 26.9; POTASSIUM 4.4 mmol/L (3.5-5.1); TOTAL BILIRUBIN 0.4 mg/dL (0.2-1.0); TOTAL PROTEIN 7.3 g/dL (6.4-8.2)
[2018-09-27 19:08] LABS: HEMOGLOBIN A1C 6.1 % (4.8-5.6)
== END | disposition home or self-care (01) ==
LOC: LAB 10:21
PROVIDERS: ATTEND Family Medicine
DX: I13.11 Hypertensive heart and chronic kidney disease without heart failure, with stage 5 chronic kidney disease, or end stage renal disease (principal); E11.22 Type 2 diabetes mellitus with diabetic chronic kidney disease; N18.5 Chronic kidney disease, stage 5; R07.89 Other chest pain
CPT/HCPCS: 36415; 80053; 80061; 82043; 82553; 83036; 84484; 85025

== ENCOUNTER → 2018-10-21 | Outpatient (CLI) | payer MEDICARE ==
[2018-10-21 10:38] LABS: BASO % 1 % (0-3); EOS # 0.1 x10^3/uL (0.0-0.7); EOS % 3 % (0-3); HEMATOCRIT 31.3 % (39.0-53.0); HEMOGLOBIN 9.9 g/dL (13.0-17.5); LYMPH # 1.4 x10^3/uL (1.0-4.8); LYMPH % 33 % (24-48); MEAN CORPUSCULAR HEMOGLOBIN 24 pg (25-35); MEAN CORPUSCULAR HGB CONC 32 g/dL (31-37); MEAN CORPUSCULAR VOLUME 77 fL (79-100); MONO # 0.5 x10^3/uL (0.0-1.1); MONO % 11 % (0-9); NEUT # 2.2 x10^3uL (1.8-7.7); NEUT % 52 % (31-73); PLATELET COUNT 175 x10^3/uL (140-400); RED BLOOD COUNT 4.05 x10^6/uL (4.30-5.70); RED CELL DISTRIBUTION WIDTH 14.1 % (11.5-14.5); WHITE BLOOD COUNT 4.2 x10^3/uL (4.0-11.0)
[2018-10-21 10:43] LABS: ALBUMIN 3.5 g/dL (3.4-5.0); CALCIUM 8.6 mg/dL (8.5-10.1); CREATININE 2.7 mg/dL (0.7-1.3); GFR 27.9; MAGNESIUM 2.1 mg/dL (1.8-2.4); PHOSPHORUS 3.8 mg/dL (2.6-4.7); POTASSIUM 4.2 mmol/L (3.5-5.1)
[2018-10-21 17:07] LABS: MICRO CREAT RATIO 494.8 mg/g creat (0.0-30.0); MICROALB RD UR 247.9 ug/mL (Not Estab.)
[2018-10-21 23:08] LABS: CALCIUM PTH 8.7 mg/dL (8.6-10.2); CREATININE PTH 2.59 mg/dL (0.76-1.27); PTH INTACT 107 pg/mL (15-65)
== END | disposition home or self-care (01) ==
LOC: LAB 09:54
PROVIDERS: ATTEND Internal Medicine Nephrology
DX: I13.10 Hypertensive heart and chronic kidney disease without heart failure, with stage 1 through stage 4 chronic kidney disease, or unspecified chronic kidney disease (principal); E11.21 Type 2 diabetes mellitus with diabetic nephropathy; N18.4 Chronic kidney disease, stage 4 (severe); I70.1 Atherosclerosis of renal artery; D64.9 Anemia, unspecified; E21.1 Secondary hyperparathyroidism, not elsewhere classified; R80.1 Persistent proteinuria, unspecified; Z68.30 Body mass index [BMI] 30.0-30.9, adult
CPT/HCPCS: 36415; 80069; 82043; 82306; 82570; 83735; 83970; 84156; 85025

== ENCOUNTER → 2019-01-10 | Day surgery (SDC) | payer MEDICARE ==
[~2019-01-10] MED LIST changes: +ALBUTEROL SULFATE 2.5 MG/3 ML NEBU. NEB PRN; -AMLO10TA6 PO; +AMLO10TA8 PO; +ATROPINE 0.5 MG/5 ML DISP.SYRIN. IV PRN; +CARV12.547 PO; +HYDR-2145 PO; -HYDR25TA9 PO; +INSU100I32 SQ; +ISOS60TA2 PO; +IV NORMAL SALINE 1,000ML 1,000 ML IV SCH; +IV RINGERS SOLUTION,LACTATED 1,000 ML IV SCH; +LIDOCAINE 2% PF Vial for OR 5 ML VIAL. ONE; +MECL25TA3 PO; +NALOXONE 0.4 MG/ML VIAL. IV PRN; +ONDANSETRON PF 4 MG/2 ML VIAL. IV PRN; +PROPOFOL 40 ML IV ONE; +diphenhydrAMINE 50 MG/ML VIAL IV PRN
[2019-01-10 09:06] VITALS: BP 118/58
== END | disposition home or self-care (01) ==
LOC: SURG 07:04
PROVIDERS: ATTEND Internal Medicine Gastroenterology
DX: Z12.11 Encounter for screening for malignant neoplasm of colon (principal); K62.1 Rectal polyp; I10 Essential (primary) hypertension; Z86.010 Personal history of colon polyps; Z79.82 Long term (current) use of aspirin; Z79.899 Other long term (current) drug therapy
CPT/HCPCS: 82947; G0105; J2704; J7120; J2001

== ENCOUNTER → 2019-02-11 | Outpatient (CLI) | payer MEDICARE ==
[2019-01-10 09:06] VITALS: BP 118/58
[~2019-02-11] MED LIST changes: -ALBUTEROL SULFATE 2.5 MG/3 ML NEBU. NEB PRN; -ATROPINE 0.5 MG/5 ML DISP.SYRIN. IV PRN; -IV NORMAL SALINE 1,000ML 1,000 ML IV SCH; -IV RINGERS SOLUTION,LACTATED 1,000 ML IV SCH; -LIDOCAINE 2% PF Vial for OR 5 ML VIAL. ONE; -NALOXONE 0.4 MG/ML VIAL. IV PRN; -ONDANSETRON PF 4 MG/2 ML VIAL. IV PRN; -PROPOFOL 40 ML IV ONE; -diphenhydrAMINE 50 MG/ML VIAL IV PRN
[2019-02-11 10:23] LABS: ALBUMIN 3.6 g/dL (3.4-5.0); CALCIUM 9.2 mg/dL (8.5-10.1); CREATININE 2.7 mg/dL (0.7-1.3); GFR 27.9; PHOSPHORUS 3.8 mg/dL (2.6-4.7); POTASSIUM 4.5 mmol/L (3.5-5.1)
[2019-02-12 03:10] LABS: MICRO CREAT RATIO 392.5 mg/g creat (0.0-30.0); MICROALB RD UR 245.7 ug/mL (Not Estab.); UR PROTEIN RD 38.7 mg/dL (Not Estab.)
== END | disposition home or self-care (01) ==
LOC: LAB 09:21
PROVIDERS: ATTEND Nurse Practitioner Adult Health
DX: I12.9 Hypertensive chronic kidney disease with stage 1 through stage 4 chronic kidney disease, or unspecified chronic kidney disease (principal); E11.22 Type 2 diabetes mellitus with diabetic chronic kidney disease; N18.4 Chronic kidney disease, stage 4 (severe); E11.21 Type 2 diabetes mellitus with diabetic nephropathy; I70.1 Atherosclerosis of renal artery; E21.1 Secondary hyperparathyroidism, not elsewhere classified; D64.9 Anemia, unspecified; R80.1 Persistent proteinuria, unspecified; Z68.30 Body mass index [BMI] 30.0-30.9, adult
CPT/HCPCS: 36415; 80069; 82043; 82306; 82570; 82728; 83540; 83550; 84156

== ENCOUNTER → 2019-09-01 | Outpatient (CLI) | payer MEDICARE ==
[2019-01-10 09:06] VITALS: BP 118/58
[~2019-09-01] MED LIST changes: -GLIM2TAB2 PO; +GLIM2TAB3 PO
[2019-09-01 11:19] LABS: HEMATOCRIT 32.2 % (39.0-53.0); HEMOGLOBIN 10.2 g/dL (13.0-17.5)
[2019-09-01 13:40] LABS: ALBUMIN 3.9 g/dL (3.4-5.0); CREATININE 2.9 mg/dL (0.7-1.3); GFR 25.7; PHOSPHORUS 4.4 mg/dL (2.6-4.7); POTASSIUM 4.2 mmol/L (3.5-5.1)
[2019-09-01 14:12] LABS: CREATININE,RANDOM URINE 40.8 mg/dL (Not Establ.)
[2019-09-01 18:07] LABS: MICRO CREAT RATIO 351.6 mg/g creat (0.0-30.0); MICROALB RD UR 151.2 ug/mL (Not Estab.)
[2019-09-01 19:11] LABS: CALCIUM PTH 9.6 mg/dL (8.6-10.2); CREATININE PTH 2.89 mg/dL (0.76-1.27); PTH INTACT 80 pg/mL (15-65)
== END | disposition home or self-care (01) ==
LOC: LAB 10:06
PROVIDERS: ATTEND Internal Medicine Nephrology
DX: N18.4 Chronic kidney disease, stage 4 (severe) (principal); Z68.30 Body mass index [BMI] 30.0-30.9, adult
CPT/HCPCS: 36415; 80069; 82043; 82306; 82570; 83970; 84156; 85014; 85018

== ENCOUNTER → 2020-04-23 | Outpatient (CLI) | payer MEDICARE ==
[2019-01-10 09:06] VITALS: BP 118/58
[~2020-04-23] MED LIST changes: -GLIM2TAB3 PO; +GLIM2TAB7 PO; +MECL-75 PO; -MECL25TA3 PO
--- NOTE | 2020-04-23 17:14 | RAD ---
EXAMINATION: VENOUS LOWER EXTREMITY LEFT HISTORY: Left lower extremity swelling COMPARISON/CORRELATION: None FINDINGS: Left lower extremity duplex venous ultrasound exam was performed. Grayscale, color Doppler, and spectral Doppler imaging was performed. Compression and augmentation was performed. The left common femoral vein, superficial femoral vein, popliteal vein, and saphenofemoral junction are normal with no evidence of deep venous thrombus. Visualized left calf veins are unremarkable. Normal compressibility and augmentation is evident. IMPRESSION: Normal left lower extremity duplex ultrasound exam. No evidence of deep venous thrombus involving the left lower extremity. Electronically signed by: Cali Frances MD (04/23/2020 5:11 PM) [id number]
--- NOTE | 2020-04-23 17:26 | RAD ---
CHEST PA LATERAL History: Shortness of breath Comparison: September 23, 2017 Findings: 2 views of the chest are submitted. There is some motion. There is likely some patchy mild bibasilar airspace opacity as seen on the PA view. There is no dependent pleural fluid or pneumothorax. There is thoracic spondylosis. Heart size is stable, not significantly enlarged. There is mild sclerotic calcification near aortic arch. Impression: 1. There is patchy bibasilar airspace opacity/infiltrates. Electronically signed by: Cuauhtemoc Espino MD (04/23/2020 5:23 PM) [id number]
[2020-04-23 17:56] LABS: BASO % 1 % (0-3); EOS # 0.2 x10^3/uL (0.0-0.7); EOS % 3 % (0-3); HEMATOCRIT 28.6 % (39.0-53.0); HEMOGLOBIN 9.1 g/dL (13.0-17.5); LYMPH # 1.8 x10^3/uL (1.0-4.8); LYMPH % 36 % (24-48); MEAN CORPUSCULAR HEMOGLOBIN 25 pg (25-35); MEAN CORPUSCULAR HGB CONC 32 g/dL (31-37); MEAN CORPUSCULAR VOLUME 79 fL (79-100); MONO # 0.7 x10^3/uL (0.0-1.1); MONO % 13 % (0-9); NEUT # 2.5 x10^3uL (1.8-7.7); NEUT % 48 % (31-73); PLATELET COUNT 169 x10^3/uL (140-400); RED BLOOD COUNT 3.63 x10^6/uL (4.30-5.70); RED CELL DISTRIBUTION WIDTH 15.1 % (11.5-14.5); WHITE BLOOD COUNT 5.2 x10^3/uL (4.0-11.0)
[2020-04-23 18:42] LABS: ALBUMIN 3.8 g/dL (3.4-5.0); ALBUMIN/GLOBULIN RATIO 1.3 (1.0-1.7); CALCIUM 8.9 mg/dL (8.5-10.1); GFR 24.7; TOTAL BILIRUBIN 0.2 mg/dL (0.2-1.0); TOTAL PROTEIN 6.8 g/dL (6.4-8.2)
== END ==
LOC: LAB 16:03
PROVIDERS: ATTEND Family Medicine
DX: I82.412 Acute embolism and thrombosis of left femoral vein (principal); R06.02 Shortness of breath; M47.894 Other spondylosis, thoracic region
CPT/HCPCS: 36415; 71046; 80053; 82553; 84484; 85025; 85379; 93971

== ENCOUNTER → 2020-05-01 | Outpatient (CLI) | payer MEDICARE ==
[2019-01-10 09:06] VITALS: BP 118/58
[~2020-05-01] MED LIST changes: +AMLO-187 PO; -AMLO10TA8 PO
--- NOTE | 2020-05-01 16:48 | RAD ---
EXAM: CT Chest, Abdomen, and Pelvis without IV contrast INDICATION: Reason: ELEVATED D DIMER ACUTE EMBOLISM THROMBOSIS, NO CONTRAST PER GFR / Spl. Instructions: ALL WITHOUT CONTRAST PER DOCTOR. GFT 24 / History: TECHNIQUE: Multi-detector row CT images were acquired from the thoracic inlet through the ischial tuberosities without the use of IV contrast. Sagittal and coronal images were acquired from the transaxial data. All CT scans performed at this facility utilize dose optimization techniques as appropriate to the exam, including the following: Automated exposure control and adjustment of the mA and/or KV according to patient size (this includes techniques or standardized protocols for targeted exams where dose is indication/reason for exam). ORAL CONTRAST: Not administered COMPARISON: None FINDINGS: The absence of IV contrast limits evaluation of soft tissue pathology. CHEST: CARDIOVASCULAR: Extensive arterial vascular calcifications including in the coronary arteries. MEDIASTINUM & LEE: 1 cm ovoid low-density lesion in the thyroid isthmus is better assessed on ultrasound. Mildly prominent subcarinal lymph node measuring 9 mm short axis diameter. LUNGS: No pulmonary infiltrate, nodule, or other focal abnormality. PLEURAL SPACE: No pleural effusions or pneumothorax. OSSEOUS & SOFT TISSUE: Unremarkable ABDOMEN/PELVIS: LIVER: Unremarkable BILIARY SYSTEM: Gallbladder is unremarkable. Bile ducts are not dilated. PANCREAS: Unremarkable SPLEEN: Unremarkable ADRENALS: Unremarkable KIDNEYS & URETERS: Bilateral renal low-density cortical lesions compatible with cysts are present. These require no additional follow-up. There is bilateral left greater than right perirenal soft tissue stranding, nonspecific. Mild left distal hydroureter is present. Mild fullness of left renal pelvis is also noted, equivocal for the presence of parapelvic cysts versus mild left hydronephrosis. BLADDER: Moderately distended urinary bladder with mild perivesical soft tissue stranding along the anterior wall, of uncertain significance. REPRODUCTIVE ORGANS: The prostate is enlarged measuring 5.4 cm in craniocaudal extent by 6.1 cm AP by 5.5 cm. GASTROINTESTINAL: The stomach, small bowel, and colon are unremarkable. The appendix is normal. MESENTERY/PERITONEUM/RETROPERITONEUM: Unremarkable VASCULAR: Scattered arterial calcifications, with a stent in the proximal right renal artery noted. No abdominal aortic aneurysm. No periaortic soft tissue stranding or fluid. LYMPH NODES: No adenopathy OSSEOUS & SOFT TISSUES: Bilateral fat-containing inguinal hernias, right greater than left. Multilevel lumbar spinal degenerative spondylosis. IMPRESSION: Findings suggest some evidence of urinary tract obstruction, especially on the left where left hydroureter distally is seen along with asymmetrically greater mild left perirenal soft tissue stranding and possible mild left hydronephrosis versus parapelvic cysts. Correlate clinically. When clinically feasible, CT with IV contrast could be pursued in further evaluation. Alternatively, renal MAG3 scan could be considered in further evaluation. Electronically signed by: Castro Jaramillo MD (05/01/2020 4:45 PM) [id number]
== END | disposition home or self-care (01) ==
LOC: CT 09:56
PROVIDERS: ATTEND Family Medicine
DX: I82.412 Acute embolism and thrombosis of left femoral vein (principal); K40.90 Unilateral inguinal hernia, without obstruction or gangrene, not specified as recurrent; M47.896 Other spondylosis, lumbar region; N13.4 Hydroureter
CPT/HCPCS: 71250; 74176

== ENCOUNTER → 2020-07-02 | Outpatient (CLI) | payer MEDICARE ==
[2019-01-10 09:06] VITALS: BP 118/58
[~2020-07-02] MED LIST changes: -AMLO-187 PO; +AMLO10TA8 PO
[2020-07-02 09:06] LABS: HEMATOCRIT 28.8 % (39.0-53.0); HEMOGLOBIN 9.2 g/dL (13.0-17.5)
[2020-07-02 09:37] LABS: ALBUMIN 3.9 g/dL (3.4-5.0); CREATININE 3.4 mg/dL (0.7-1.3); GFR 21.4; POTASSIUM 4.3 mmol/L (3.5-5.1)
[2020-07-02 13:09] LABS: CREATININE,RANDOM URINE 32.2 mg/dL (Not Establ.)
[2020-07-03 02:07] LABS: MICROALB RD UR 226.9 ug/mL (Not Estab.)
== END | disposition home or self-care (01) ==
LOC: LAB 08:17
PROVIDERS: ATTEND Internal Medicine Nephrology
DX: I12.9 Hypertensive chronic kidney disease with stage 1 through stage 4 chronic kidney disease, or unspecified chronic kidney disease (principal); N18.4 Chronic kidney disease, stage 4 (severe); I70.1 Atherosclerosis of renal artery; D64.9 Anemia, unspecified; E11.22 Type 2 diabetes mellitus with diabetic chronic kidney disease; E21.1 Secondary hyperparathyroidism, not elsewhere classified; E11.21 Type 2 diabetes mellitus with diabetic nephropathy; R80.1 Persistent proteinuria, unspecified; Z68.31 Body mass index [BMI] 31.0-31.9, adult
CPT/HCPCS: 36415; 80069; 82043; 82570; 82728; 83540; 83550; 84156; 85014; 85018

== ENCOUNTER → 2020-08-08 | Outpatient (CLI) | payer MEDICARE ==
[2019-01-10 09:06] VITALS: BP 118/58
[2020-08-08 10:51] LABS: CALCIUM 9.1 mg/dL (8.5-10.1); CREATININE 2.5 mg/dL (0.7-1.3); GFR 30.5; POTASSIUM 4.7 mmol/L (3.5-5.1)
== END | disposition home or self-care (01) ==
LOC: LAB 08:37
PROVIDERS: ATTEND Internal Medicine Nephrology
DX: I12.9 Hypertensive chronic kidney disease with stage 1 through stage 4 chronic kidney disease, or unspecified chronic kidney disease (principal); N18.4 Chronic kidney disease, stage 4 (severe); N17.9 Acute kidney failure, unspecified; E11.21 Type 2 diabetes mellitus with diabetic nephropathy; E11.9 Type 2 diabetes mellitus without complications; D64.9 Anemia, unspecified; I70.1 Atherosclerosis of renal artery; R80.1 Persistent proteinuria, unspecified; E21.1 Secondary hyperparathyroidism, not elsewhere classified; Z68.30 Body mass index [BMI] 30.0-30.9, adult
CPT/HCPCS: 36415; 80048; 82947

== ENCOUNTER 2021-04-21 04:38 | Emergency (ER) | payer MEDICARE ==
[~2021-04-21] VITALS: Ht 172.7 cm; Wt 80.2 kg
--- NOTE | 2021-04-21 05:03 | PHYS DOC ---
Past History Past Medical History: Constipation, Diabetes, Hypertension, Renal Disease, Other (EVAN CALDERON MD) Past Surgical History: Tonsillectomy, Other (EVAN CALDERON MD) Smoking: Non-smoker Alcohol Use: None Drug Use: None (EVAN CALDERON MD) Adult General Chief Complaint Chief Complaint: HYPERTENSION HPI HPI Patient is a 80-year-old male with a past medical history significant for diabetes, and hypertension who presents to the emergency department with a chief complaint of hypertension. States he takes his blood pressure medicine regularly and takes his blood pressure readings at home and were around 200 at about midnight. States he took it again at about 4 AM and it was the same. Denies any recent traumas, travels, illnesses, fevers, chest pain, shortness of breath, abdominal pain, nausea, vomiting, dysuria, hematuria or blood in the stool. Denies any numbness/weakness/tingling, balance problems or trouble ambulating. Denies any alcohol or drug use. States he is taking all his medications as prescribed. (EVAN CALDERON MD) Review of Systems Review of Systems Review of systems otherwise unremarkable except noted in HPI (EVAN CALDERON MD) Allergies Allergies Allergies Coded Allergies Type Severity Reaction Last Updated Verified No Known Drug Allergies 04/21/21 No (EVAN CALDERON MD) Physical Exam Physical Exam Constitutional: Well developed, well nourished, no acute distress, non-toxic appearance. [] HENT: Normocephalic, atraumatic, bilateral external ears normal, oropharynx moist, no oral exudates, nose normal. [] Eyes: PERRLA, EOMI, conjunctiva normal, no discharge. [] Neck: Normal range of motion, no tenderness, supple, no stridor. [] Cardiovascular:Heart rate regular rhythm, no murmur [] Lungs & Thorax: Bilateral breath sounds clear to auscultation [] Abdomen: soft, no tenderness, no masses, no pulsatile masses. [] Skin: Warm, dry, no erythema, no rash. [] Back: no CVA tenderness. [] Extremities: No tenderness, no cyanosis, no clubbing, ROM intact, no edema. [] Neurologic: Alert and oriented X 3, normal motor function, normal sensory function, able to sit stand and walk without issue, no focal deficits noted. [] Psychologic: Affect normal, judgement normal, mood normal. [] (EVAN CALDERON MD) EKG EKG Rate of 58, QRS of 82, QTc of 410, no STEMI, PACs [] (EVAN CALDERON MD) Radiology/Procedures Radiology/Procedures [] (EVAN CALDERON MD) Impressions: XR CHEST 1V Clinical History: Reason: HTN / Spl. Instructions: / History: Technique: AP view of the chest was obtained at 04/21/2021 5:18 AM. Comparison: September 23, 2017. Findings: The cardiomediastinal silhouette is normal. The pulmonary vasculature is normal. The lungs and pleural margins are clear. Impression: No evidence of an acute cardiopulmonary process. Electronically signed by: Benito Gonzáles III, MD (04/21/2021 5:30 AM) [facility] DICTATED AND SIGNED BY: BENITO GONZÁLES III, MD DATE: 04/21/21528 CC: EVAN CALDERON MD; CHRISTINE EL MD ~MTH0 0 (AGUS WELSH DO) Heart Score C/O Chest Pain: No Risk Factors: Risk Factors: DM, Current or recent (<one month) smoker, HTN, HLP, family history of CAD, obesity. Risk Scores: Risk Factors: DM, Current or recent (<one month) smoker, HTN, HLP, family history of CAD, obesity. (EVAN CALDERON MD) Course & Med Decision Making Course & Med Decision Making Patient is a 40-year-old male who presents with a chief complaint of h ypertension at home Vital signs notable for hypertension. Physical exam noted above. Patient placed on monitor with IV access established. [] (EVAN CALDERON MD) Course & Med Decision Making The patient's labs are remarkable for an elevated creatinine, elevated BUN, low hemoglobin. Review of his chart shows that all of these numbers are within his typical range. I do not see any new medical problems. It is likely that his elevated pressure is because he is due for his medications within the next hour. I will go ahead and give him his amlodipine and a little bit of clonidine in the ED. Encouraged him to go home and take the rest of his medications as prescribed. He is not on carvedilol as his medication list suggests. Patient tells me he has not taken that medicine. I believe this is reasonable given his low heart rate. The patient has a follow-up appointment later in the morning for another medical test. I believe he is safe to be discharged home at this time. If he continues to have elevated pressure at that appointment he can see his primary care physician or return to the emergency room. (AGUS WELSH DO) Dragon Disclaimer Dragon Disclaimer This electronic medical record was generated, in whole or in part, using a voice recognition dictation system. (EVAN CALDERON MD) Departure Departure: Impression: Primary Impression: Hypertension Disposition: 01 HOME / SELF CARE / HOMELESS Condition: STABLE Referrals: CHRISTINE EL MD (PCP) Patient Instructions: Hypertension, [id number] EVAN CALDERON MD April 21, 2021 05:03 AGUS WELSH DO April 21, 2021 07:29
--- NOTE | 2021-04-21 05:16 | EKG ---
[address] [address] Test Date: 2021-04-21 Test Time: 05:09:00 Pat Name: SEAMUS ALTMAN Department: Room: Gender: M Contact Center Professional: CAMACHO : 1940 Requested By: EVAN CALDERON Order Number: [id number] Reading MD: Measurements Intervals Vestal Rate: 58 P: 0 NE: 180 QRS: 3 QRSD: 82 T: 32 QT: 418 QTc: 410 Interpretive Statements SINUS RHYTHM ATRIAL PREMATURE COMPLEX(ES) OTHERWISE NORMAL ECG RI6.02 No previous ECG available for comparison
--- NOTE | 2021-04-21 05:32 | RAD ---
XR CHEST 1V Clinical History: Reason: HTN / Spl. Instructions: / History: Technique: AP view of the chest was obtained at 04/21/2021 5:18 AM. Comparison: September 23, 2017. Findings: The cardiomediastinal silhouette is normal. The pulmonary vasculature is normal. The lungs and pleura l margins are clear. Impression: No evidence of an acute cardiopulmonary process. Electronically signed by: Pop Arora III, MD (04/21/2021 5:30 AM) [facility]
[2021-04-21 05:43] LABS: CREATININE 2.3 mg/dL (0.7-1.3); GFR 33.4; POTASSIUM 4.6 mmol/L (3.5-5.1)
[2021-04-21 05:55] LABS: BASO % 1 % (0-3); EOS # 0.1 x10^3/uL (0.0-0.7); EOS % 2 % (0-3); HEMATOCRIT 26.9 % (39.0-53.0); HEMOGLOBIN 8.6 g/dL (13.0-17.5); LYMPH # 1.3 x10^3/uL (1.0-4.8); LYMPH % 29 % (24-48); MEAN CORPUSCULAR HEMOGLOBIN 26 pg (25-35); MEAN CORPUSCULAR HGB CONC 32 g/dL (31-37); MEAN CORPUSCULAR VOLUME 80 fL (79-100); MONO # 0.5 x10^3/uL (0.0-1.1); MONO % 11 % (0-9); NEUT # 2.6 x10^3uL (1.8-7.7); NEUT % 57 % (31-73); PLATELET COUNT 175 x10^3/uL (140-400); RED BLOOD COUNT 3.35 x10^6/uL (4.30-5.70); RED CELL DISTRIBUTION WIDTH 14.1 % (11.5-14.5); WHITE BLOOD COUNT 4.6 x10^3/uL (4.0-11.0)
[2021-04-21 06:05] LABS: BILIRUBIN,URINE NEG (NEG); CLARITY,URINE CLEAR; COLOR,URINE YELLOW; GLUCOSE,URINE NEG (NEG)
[2021-04-21 06:06] LABS: NITRITE,URINE NEG (NEG); UROBILINOGEN,URINE 0.2 mg/dL (0.2 mg/dL)
[2021-04-21 06:08] LABS: BACTERIA,URINE 0 /HPF (0-FEW); RBC,URINE 0 /HPF (0-2); WBC,URINE 0 /HPF (0-4)
[2021-04-21 06:09] LABS: SQUAMOUS EPITHELIAL CELL,UR FEW /LPF
[2021-04-21 06:37] LABS: POTASSIUM ISTAT 4.6 mmol/L (3.5-5.0); SODIUM ISTAT 137 mmol/L (135-145)
[2021-04-21 06:38] LABS: BUN ISTAT 32 mg/dL (8-26); GLUCOSE ISTAT 86 mg/dL (60-99); HEMATOCRIT ISTAT 25 %; HEMOGLOBIN ISTAT 8.5 gm/dL
[2021-04-21] MEDS ORDERED: amLODIPine BESYLATE 5 MG TABLET PO ONE (07:15)
[2021-04-21] MEDS ORDERED: cloNIDine HCL 0.1 MG TABLET PO ONE (07:30)
[2021-04-21 07:35] VITALS: BP 203/74
[2021-04-21 14:00] LABS: ALBUMIN 4.1 g/dL (3.4-5.0); ALBUMIN/GLOBULIN RATIO 1.3 (1.0-1.7); CALCIUM 8.5 mg/dL (8.5-10.1); TOTAL BILIRUBIN 0.4 mg/dL (0.2-1.0); TOTAL PROTEIN 7.2 g/dL (6.4-8.2)
== END 2021-04-21 07:45 | disposition home or self-care (01) ==
LOC: ER 04:38
DX: I10 Essential (primary) hypertension (principal); E11.9 Type 2 diabetes mellitus without complications
CPT/HCPCS: 36415; 71045; 80047; 80053; 81001; 82803; 84484; 85025; 93005; 99285

== ENCOUNTER → 2021-04-21 | Outpatient (CLI) | payer MEDICARE ==
[~2021-04-21] MED LIST changes: +AMLO-187 PO; -AMLO10TA8 PO; -ISOS60TA2 PO; +ISOS60TA55 PO; -LISI40TA PO; +LISI40TA6 PO
[2021-04-21 07:35] VITALS: BP 203/74
--- NOTE | 2021-04-21 14:07 | RAD ---
MR#: [id number] Date of Study: 04/21/2021 Ordering Physician: UZIEL LINDSAY, Referring Physician: UZIEL LINDSAY, Tech: Ana Kim RVT,[facility] APPROVED REPORT Bilateral Lower Extremity Venous Study for DVT Patient Location: OUT-PATIENT Indications DVT of Lower Extremity:Left The bilateral lower extremity deep veins were evaluated for thrombus with color Doppler, spectral and grayscale images. On the right the grayscale images of the common femoral, superficial femoral and popliteal veins do n ot demonstrate any evidence of thrombus and these veins appear to be compressible. The below-knee vei ns were not well visualized but grossly appear to be compressible. Spectral imaging and color Doppler do not reveal any evidence of obstruction to flow with normal respirophasic variation above the knee . Below the knee there is spontaneous flow noted. On the left, the grayscale images of the common femoral, superficial femoral and popliteal veins do n ot demonstrate any evidence of thrombus and these veins appear to be compressible. The below-knee vei ns again were not well visualized but grossly appear to be compressible. Spectral imaging and color D oppler do not reveal any evidence of obstruction to flow with normal respirophasic variation above th e knee. The below-knee veins demonstrate spontaneous flow. Medications Aspirin Vein Imaging (Right) CFV (R): Compressible SFJ (R): Compressible FEM (R): Compressible POP (R): Compressible DFV (R): Compressible PTV (R): Compressible GSV (R): Compressible Peroneals (R): Compressible Vein Imaging (Left) CFV (L): Compressible SFJ (L): Compressible FEM (L): Compressible POP (L): Compressible DFV (L): Compressible PTV (L): Compressible GSV (L): Compressible Peroneals (L): Compressible Critical Notification Critical Value: No <Conclusion> 1. No clear evidence of DVT in the bilateral lower extremities. Signed by : Cedric Holcomb, Electronically Approved : 04/21/2021 14:06:49
== END ==
LOC: US 07:52
PROVIDERS: ATTEND Internal Medicine Cardiovascular Disease
DX: I82.593 Chronic embolism and thrombosis of other specified deep vein of lower extremity, bilateral (principal)
CPT/HCPCS: 93970

== ENCOUNTER → 2021-10-10 | Outpatient (CLI) | payer MEDICARE ==
[2021-10-10 09:54] LABS: HEMATOCRIT 26.9 % (39.0-53.0); HEMOGLOBIN 8.5 g/dL (13.0-17.5)
[2021-10-10 10:03] LABS: ALBUMIN 3.8 g/dL (3.4-5.0); CALCIUM 9.2 mg/dL (8.5-10.1); CREATININE 2.1 mg/dL (0.7-1.3); PHOSPHORUS 3.8 mg/dL (2.6-4.7); POTASSIUM 4.6 mmol/L (3.5-5.1)
[2021-10-11 13:09] LABS: CALCIUM PTH 9.1 mg/dL (8.6-10.2); CREATININE PTH 2.15 mg/dL (0.76-1.27); PTH INTACT 71 pg/mL (15-65)
== END ==
LOC: LAB 08:32
PROVIDERS: ATTEND Nurse Practitioner Adult Health
DX: I12.9 Hypertensive chronic kidney disease with stage 1 through stage 4 chronic kidney disease, or unspecified chronic kidney disease (principal); N18.32 Chronic kidney disease, stage 3b; N17.9 Acute kidney failure, unspecified; E11.22 Type 2 diabetes mellitus with diabetic chronic kidney disease; I70.1 Atherosclerosis of renal artery; D64.9 Anemia, unspecified; E21.1 Secondary hyperparathyroidism, not elsewhere classified; R80.1 Persistent proteinuria, unspecified; N40.1 Benign prostatic hyperplasia with lower urinary tract symptoms; N28.1 Cyst of kidney, acquired; R07.9 Chest pain, unspecified; Z79.84 Long term (current) use of oral hypoglycemic drugs; Z68.26 Body mass index [BMI] 26.0-26.9, adult
CPT/HCPCS: 36415; 80069; 82728; 83540; 83550; 83970; 85014; 85018

== ENCOUNTER → 2021-12-01 | Outpatient (CLI) | payer MEDICARE ==
[2021-12-01 10:14] LABS: ALBUMIN 3.9 g/dL (3.4-5.0); CALCIUM 8.7 mg/dL (8.5-10.1); CREATININE 2.4 mg/dL (0.7-1.3); GFR 31.8; PHOSPHORUS 3.8 mg/dL (2.6-4.7)
== END ==
LOC: LAB 08:58
PROVIDERS: ATTEND Family Medicine
DX: I12.9 Hypertensive chronic kidney disease with stage 1 through stage 4 chronic kidney disease, or unspecified chronic kidney disease (principal); E11.21 Type 2 diabetes mellitus with diabetic nephropathy; N18.32 Chronic kidney disease, stage 3b; N17.9 Acute kidney failure, unspecified; I70.1 Atherosclerosis of renal artery; D64.9 Anemia, unspecified; E21.1 Secondary hyperparathyroidism, not elsewhere classified; R80.1 Persistent proteinuria, unspecified; N40.1 Benign prostatic hyperplasia with lower urinary tract symptoms; N28.1 Cyst of kidney, acquired; R07.9 Chest pain, unspecified; Z79.84 Long term (current) use of oral hypoglycemic drugs; Z68.26 Body mass index [BMI] 26.0-26.9, adult
CPT/HCPCS: 36415; 80069

== ENCOUNTER → 2022-04-07 | Outpatient (CLI) | payer MEDICARE ==
[2022-04-07 09:23] LABS: HEMATOCRIT 29.1 % (39.0-53.0); HEMOGLOBIN 9.3 g/dL (13.0-17.5)
[2022-04-07 09:36] LABS: ALBUMIN 3.8 g/dL (3.4-5.0); CALCIUM 9.1 mg/dL (8.5-10.1); CREATININE 2.6 mg/dL (0.7-1.3); PHOSPHORUS 3.9 mg/dL (2.6-4.7); POTASSIUM 4.6 mmol/L (3.5-5.1)
[2022-04-08 01:08] LABS: MICRO CREAT RATIO 1083 mg/g creat (0-29); MICROALB RD UR 354.1 ug/mL (Not Estab.); UR PROTEIN RD 52.9 mg/dL (Not Estab.)
[2022-04-09 02:07] LABS: CALCIUM PTH 9.2 mg/dL (8.6-10.2); CREATININE PTH 2.37 mg/dL (0.76-1.27); PTH INTACT 88 pg/mL (15-65)
== END ==
LOC: LAB 08:05
PROVIDERS: ATTEND Nurse Practitioner Adult Health
DX: I12.9 Hypertensive chronic kidney disease with stage 1 through stage 4 chronic kidney disease, or unspecified chronic kidney disease (principal); E11.22 Type 2 diabetes mellitus with diabetic chronic kidney disease; N18.32 Chronic kidney disease, stage 3b; E11.21 Type 2 diabetes mellitus with diabetic nephropathy; D63.1 Anemia in chronic kidney disease; N17.9 Acute kidney failure, unspecified; I70.1 Atherosclerosis of renal artery; E21.1 Secondary hyperparathyroidism, not elsewhere classified; R80.1 Persistent proteinuria, unspecified; N40.1 Benign prostatic hyperplasia with lower urinary tract symptoms; N28.1 Cyst of kidney, acquired; R07.9 Chest pain, unspecified; Z79.84 Long term (current) use of oral hypoglycemic drugs; Z68.26 Body mass index [BMI] 26.0-26.9, adult
CPT/HCPCS: 80069; 82043; 82570; 83970; 84156; 85014; 85018